=== PATIENT | male | born 1935 | race Caucasian/White ===

== ENCOUNTER 2018-07-18 00:40 | Inpatient (IN) | payer OTHER ==
[~2018-07-18] VITALS: Ht 172.7 cm; Wt 98.9 kg
[2018-07-18 00:49] VITALS: Ht 172.7 cm; Wt 98.9 kg
[2018-07-18 01:32] LABS: BASOPHIL % 0.6 % (0-2); PLATELET COUNT 296 x10^3mcL (130-400); RED CELL DISTRIBUTION WIDTH 12.8 % (11.5-14.5)
[2018-07-18 01:35] LABS: CALCIUM 8.6 mg/dL (8.5-10.1); CHLORIDE SERUM 104 mmol/L (98-107); CREATININE SERUM 1.3 mg/dL (0.7-1.3); GLUCOSE SERUM 122 mg/dL (74-106); POTASSIUM SERUM 3.5 mmol/L (3.5-5.1); SODIUM SERUM 136 mmol/L (136-145)
[2018-07-18 01:48] LABS: ALBUMIN 3.8 g/dL (3.4-5.0); ALKALINE PHOSPHATASE 65 U/L (46-116); ALT/SGPT 30 U/L (16-63); AST/SGOT 24 U/L (15-37)
[2018-07-18 01:54] LABS: TOTAL PROTEIN, SERUM 8.4 g/dL (6.4-8.2)
[2018-07-18] MEDS ORDERED: FUROSEMIDE20 MG PO (03:16)
[2018-07-18] MEDS ORDERED: ZOCOR40 MG PO (03:16)
[2018-07-18] MEDS ORDERED: METOPROLOL SUC200 M2 PO (03:18)
[2018-07-18] MEDS ORDERED: HYDROCHLOROTHIA25 MG PO (03:19)
[2018-07-18] MEDS ORDERED: AMLODIPINE BESY10 M2 PO (03:19)
[2018-07-18] MEDS ORDERED: DIOVAN320 MG PO (03:19)
[2018-07-18] MEDS ORDERED: ASPIR LOW81 MG PO (03:19)
[2018-07-18 06:30] VITALS: BP 140/64
[2018-07-18 10:00] VITALS: BP 172/65
[2018-07-18 10:35] VITALS: BP 140/64
== END 2018-07-18 12:09 | disposition home or self-care (01) | DRG 313 ==
LOC: ED 00:40 → DU 04:38
PROVIDERS: Emergency Medicine
DX: R07.89 Other chest pain (principal); I13.0 Hypertensive heart and chronic kidney disease with heart failure and stage 1 through stage 4 chronic kidney disease, or unspecified chronic kidney disease; E78.00 Pure hypercholesterolemia, unspecified; I50.9 Heart failure, unspecified; I48.91 Unspecified atrial fibrillation; I25.10 Atherosclerotic heart disease of native coronary artery without angina pectoris; E78.5 Hyperlipidemia, unspecified; Z79.82 Long term (current) use of aspirin; Z79.899 Other long term (current) drug therapy; N18.2 Chronic kidney disease, stage 2 (mild)
CPT/HCPCS: 83880; J1650; J1940; Q0092

== ENCOUNTER 2019-11-06 00:11 | Emergency (ER) | payer OTHER ==
[~2019-11-06] VITALS: Ht 180.3 cm; Wt 44.5 kg
[~2019-11-06 00:11] MED LIST: AMLODIPINE BESY10 M2 PO; ASPIR LOW81 MG PO; DIOVAN320 MG PO; ENTRESTO1 TAB PO; FUROSEMIDE20 MG PO; HYDROCHLOROTHIA25 MG PO; METOPROLOL SUC200 M2 PO; MICROZIDE12.5 MG PO; OMEPRAZOLE PO; ZOCOR40 MG PO
[2019-11-06 00:16] VITALS: Ht 180.3 cm; Wt 44.5 kg
[2019-11-06 01:21] LABS: BASOPHIL % 0.3 % (0-2); PLATELET COUNT 312 x10^3mcL (130-400); RED CELL DISTRIBUTION WIDTH 13.9 % (11.5-14.5)
[2019-11-06 01:24] LABS: CALCIUM 8.5 mg/dL (8.5-10.1); CARBON DIOXIDE 27.1 mmol/L (21-32); CHLORIDE SERUM 102 mmol/L (98-107); GLUCOSE SERUM 107 mg/dL (74-106); POTASSIUM SERUM 3.5 mmol/L (3.5-5.1); SODIUM SERUM 138 mmol/L (136-145)
[2019-11-06 01:29] LABS: ALBUMIN 3.5 g/dL (3.4-5.0); ALKALINE PHOSPHATASE 59 U/L (46-116); ALT/SGPT 21 U/L (16-63); AST/SGOT 18 U/L (15-37); BILIRUBIN TOTAL 0.6 mg/dL (0.20-1.00); TOTAL PROTEIN, SERUM 6.9 g/dL (6.4-8.2)
[2019-11-06 03:00] VITALS: BP 145/73
== END 2019-11-06 03:00 | disposition home or self-care (01) ==
LOC: ED 00:11
PROVIDERS: Emergency Medicine
DX: R07.2 Precordial pain (principal); R06.02 Shortness of breath; I10 Essential (primary) hypertension; E78.00 Pure hypercholesterolemia, unspecified
CPT/HCPCS: 36415; Q0092